=== PATIENT | female | born 1950 | race Caucasian/White ===

== ENCOUNTER 2016-06-17 12:21 | Day surgery (SDC) | payer OTHER ==
[2016-06-13 18:47] LABS: HEMATOCRIT 40.3 % (36.0-48.0); HEMOGLOBIN 13.3 g/dL (12.0-16.0)
[2016-06-13 18:55] LABS: PROTIME (NOT ORD) 13.5 SEC (12.0-14.5)
[~2016-06-17 12:21] MED LIST: ALBUTEROL0.63 MG/3 INH; ARIMIDEX1 PO; ATRONASAL6 NAS; BREO ELLIPTA 21 EACH INH; CAT1 PO; CLORTAB PO; COMBIPATC1 TD; DULERA 100 MCG/13 GM INH; DYMISTA; ESTRATESHS PO; GLUCCHONDR PO; IBU800 PO; LEVAQ250 PO; LYSINE1000 MG OR; MOTRIN IB200 MG PO; MULTIPLE VIT PO; PATANASE0.6 % NAS; PROAIR HFA INH; QNASL8.7 GM NAS; SINGULAIR1 PO; SYMBICORT 160/41 INH INH; VERAMYST27.5 MCG NAS; VITAMIN D1000 UNI1 PO; XYZAL5 MG PO; [UNRECOGNIZED DRUG - OTHER] OPH
== END 2016-06-17 19:15 | disposition home or self-care (01) ==
LOC: SDC 12:21
PROVIDERS: Otolaryngology
PROC: 09DV0ZZ Extraction of Left Ethmoid Sinus, Open Approach (ICD-10-PCS; 2016-06-17)
PROC: 09DU0ZZ Extraction of Right Ethmoid Sinus, Open Approach (ICD-10-PCS; 2016-06-17)
PROC: 099W0ZZ Drainage of Right Sphenoid Sinus, Open Approach (ICD-10-PCS; 2016-06-17)
PROC: 099X0ZZ Drainage of Left Sphenoid Sinus, Open Approach (ICD-10-PCS; 2016-06-17)
PROC: 099R0ZZ Drainage of Left Maxillary Sinus, Open Approach (ICD-10-PCS; principal; 2016-06-17 14:30)
PROC: 099Q0ZZ Drainage of Right Maxillary Sinus, Open Approach (ICD-10-PCS; 2016-06-17 14:30)
DX: J32.0 Chronic maxillary sinusitis (principal); J32.2 Chronic ethmoidal sinusitis; J32.3 Chronic sphenoidal sinusitis; J32.1 Chronic frontal sinusitis; J45.909 Unspecified asthma, uncomplicated; G47.33 Obstructive sleep apnea (adult) (pediatric); Z79.899 Other long term (current) drug therapy; Z88.5 Allergy status to narcotic agent
CPT/HCPCS: 85014; 85018; 85610; 85730; 88305; 93005; A9270-GY; C1725; J2250; J2370; J2405; J2710; J3010